=== PATIENT | female | born 2000 | race Two or more races ===

== ENCOUNTER 2020-10-31 03:40 | Outpatient (CLI) | payer OTHER | END 2020-10-31 08:30 | disposition home or self-care (01) | LOC: OBS/DEL 03:40 | PROVIDERS: ATTEND Obstetrics & Gynecology | DX: O47.1 False labor at or after 37 completed weeks of gestation (principal); Z3A.39 39 weeks gestation of pregnancy ==

== ENCOUNTER 2020-11-14 08:01 | Inpatient (IN) | payer OTHER ==
[~2020-11-14] VITALS: Ht 152.4 cm; Wt 93.0 kg
[2020-11-14] MEDS ORDERED: PRENATAL TABLE1 EAC1 PO (08:31)
[2020-11-14] MEDS ORDERED: PANTOPRAZOLE SO20 MG PO (08:33)
[2020-11-17] MEDS ORDERED: IBUPROFEN800 MG PO (11:19)
[2020-11-17] MEDS ORDERED: OXYC1TAB9 PO (11:19)
[2020-11-17] MEDS ORDERED: DOCUSATE SODIU100 MG PO (11:19)
== END 2020-11-17 11:59 | disposition home or self-care (01) | DRG 788 ==
LOC: LDR 08:01 → O/R 21:00 → OB/GYN 22:41
PROVIDERS: ADMIT Obstetrics & Gynecology; ATTEND Obstetrics & Gynecology
PROC: 10907ZC Drainage of Amniotic Fluid, Therapeutic from Products of Conception, Via Natural or Artificial Opening (ICD-10-PCS; 2020-11-14)
PROC: 3E033VJ Introduction of Other Hormone into Peripheral Vein, Percutaneous Approach (ICD-10-PCS; 2020-11-14)
PROC: 4A1HXFZ Monitoring of Products of Conception, Cardiac Rhythm, External Approach (ICD-10-PCS; 2020-11-14)
PROC: 10D00Z1 Extraction of Products of Conception, Low, Open Approach (ICD-10-PCS; principal; 2020-11-14 20:00)
DX: O62.1 Secondary uterine inertia (principal); O61.0 Failed medical induction of labor; Z3A.39 39 weeks gestation of pregnancy; Z37.0 Single live birth